=== PATIENT | female | born 1935 | race Hispanic/Latino ===

== ENCOUNTER → 2017-11-26 | Outpatient (CLI) | payer OTHER ==
[~2017-11-26] MED LIST: AMLO2.5T PO; CETI10CA5 PO; ENAL5TAB PO; FOLI1TAB61 PO; LISI40TA4 PO
== END | disposition home or self-care (01) ==
LOC: RAH 08:32
PROVIDERS: ATTEND Urology
DX: C64.9 Malignant neoplasm of unspecified kidney, except renal pelvis (principal); K57.30 Diverticulosis of large intestine without perforation or abscess without bleeding; K59.00 Constipation, unspecified; I70.0 Atherosclerosis of aorta; Z90.49 Acquired absence of other specified parts of digestive tract; Z90.5 Acquired absence of kidney; Z87.440 Personal history of urinary (tract) infections
CPT/HCPCS: 71046; 74150

== ENCOUNTER → 2018-01-22 | Outpatient (CLI) | payer OTHER ==
[~2018-01-22] MED LIST changes: -ENAL5TAB PO
== END | disposition home or self-care (01) ==
LOC: SHCH 14:37
PROVIDERS: ATTEND Internal Medicine Cardiovascular Disease
DX: I51.89 Other ill-defined heart diseases (principal); I34.0 Nonrheumatic mitral (valve) insufficiency
CPT/HCPCS: 93306

== ENCOUNTER → 2018-03-10 | Outpatient (CLI) | payer OTHER | END | disposition home or self-care (01) | LOC: SHCH 13:42 | PROVIDERS: ATTEND Internal Medicine Cardiovascular Disease | DX: I82.401 Acute embolism and thrombosis of unspecified deep veins of right lower extremity (principal); R60.0 Localized edema | CPT/HCPCS: 93971 ==

== ENCOUNTER → 2018-10-14 | Outpatient (CLI) | payer OTHER ==
[~2018-10-14] MED LIST changes: -AMLO2.5T PO; +AMLO2.5T4 PO
== END | disposition home or self-care (01) ==
LOC: RAH 13:18
PROVIDERS: ATTEND Internal Medicine Medical Oncology
DX: E04.1 Nontoxic single thyroid nodule (principal)
CPT/HCPCS: 76536